=== PATIENT | female | born 1980 | race Caucasian/White ===

== ENCOUNTER 2022-02-23 09:59 | Emergency (ER) | payer OTHER ==
[~2022-02-23] VITALS: Ht 165.1 cm; Wt 82.7 kg
[2022-02-23 10:08] VITALS: BP 145/78
[2022-02-23] MEDS ORDERED: AMOXICILLIN 8751 TAB PO (11:06)
[2022-02-23] MEDS ORDERED: ZOFRAN ODT4 MG PO ×3 (11:09→11:13)
[2022-02-23 11:19] VITALS: PULSE 107; TEMP 102.6
== END 2022-02-23 11:22 | disposition home or self-care (01) ==
LOC: COL.ER 09:59
DX: N61.0 Mastitis without abscess (principal)
CPT/HCPCS: J0696; J1885